=== PATIENT | female | born 1995 | race Caucasian/White ===

== ENCOUNTER 2018-02-02 09:08 | Emergency (ER) | payer MEDICAID ==
[~2018-02-02] VITALS: Ht 162.6 cm; Wt 81.0 kg
[2018-02-02] MEDS ORDERED: IBUPROFEN 600MG TABLET PO STA (10:09)
[2018-02-02 14:00] VITALS: BP 114/71
== END 2018-02-02 14:33 | disposition home or self-care (01) ==
LOC: ER 09:08
DX: R07.89 Other chest pain (principal); J02.9 Acute pharyngitis, unspecified
CPT/HCPCS: 71045; 93005; 99284